=== PATIENT | male | born 1960 | race Caucasian/White ===

== ENCOUNTER 2022-10-30 17:09 | Inpatient (IN) | payer OTHER ==
[2022-10-30 18:44] VITALS: BMI 33.5
[2022-10-31] MEDS ORDERED: MAGNESIUM HYDROX 2400MG/30ML ORAL SUSPENSION 30 ML CUP PO PRN (03:41)
[2022-10-31] MEDS ORDERED: MAG HYDROX/AL HYDROX/SIMETH 30 ML UNIT-DOSE CUP PO PRN (03:41)
[2022-10-31] MEDS ORDERED: DICYCLOMINE HCL 10 MG CAPSULE PO PRN (03:41)
[2022-10-31] MEDS ORDERED: METHOCARBAMOL 500 MG TABLET PO PRN (03:41)
[2022-10-31] MEDS ORDERED: NALOXONE HCL (KLOXXADO) 8 MG SPRAY NS PRN (03:41)
[2022-10-31] MEDS ORDERED: NALOXONE HCL 0.4 MG/ML VIAL IM PRN (03:41)
[2022-10-31] MEDS ORDERED: IBUPROFEN 400 MG TABLET (FP) PO PRN (03:41)
[2022-10-31] MEDS ORDERED: ONDANSETRON *ODT* 4 MG TABLET SL PRN (03:41)
[2022-10-31] MEDS ORDERED: ACETAMINOPHEN 325 MG TABLET (FP) PO PRN (03:41)
[2022-10-31] MEDS ORDERED: IBUPROFEN 600 MG TABLET (FP) PO PRN (03:41)
[2022-10-31] MEDS ORDERED: BENZOCAINE/MENTHOL (CHLORASEPTIC ) LOZENGE MM PRN (03:41)
[2022-10-31] MEDS ORDERED: POLYETHYLENE GLYCOL (HEALTHYLAX) 3350 17 GM PACKET PO PRN (03:41)
[2022-10-31] MEDS ORDERED: BENZONATATE 200 MG CAPSULE PO PRN (03:41)
[2022-10-31] MEDS ORDERED: LOPERAMIDE HCL 2 MG CAPSULE PO PRN (03:41)
[2022-10-31] MEDS ORDERED: BISMUTH SUBSALICYLATE 524 MG/30 ML PO PRN (03:41)
[2022-10-31] MEDS ORDERED: guaiFENesin 600 MG TABLET.ER (FP) PO PRN (03:41)
[2022-10-31] MEDS ORDERED: cloNIDine HCL 0.1 MG TABLET PO ONE (03:47)
[2022-10-31] MEDS ORDERED: LORazepam 1 MG TABLET PO PRN (03:47)
[2022-10-31] MEDS: LORazepam 2 MG TABLET PO SCH ×4 (04:22→22:32)
[2022-10-31] MEDS ORDERED: METFORMIN HCL 500 MG PO SCH (08:30)
[2022-10-31] MEDS: PRENATAL VITAMINS W/ FOLIC ACID TABLET (FP) PO SCH (10:18)
[2022-10-31] MEDS: SERTRALINE HCL 50 MG TABLET (FP) PO SCH (12:18)
[2022-10-31] MEDS: PANTOPRAZOLE 40 MG TABLET PO SCH (13:47)
[2022-10-31] MEDS ORDERED: MECLIZINE HCL 25 MG TABLET (FP) PO PRN (13:54)
[2022-10-31] MEDS: TAMSULOSIN HCL 0.4 MG CAP PO SCH (14:49)
[2022-10-31] MEDS: PATIENT'S OWN MEDICATION (NON-FORMULARY) (Cetirizine Hcl [Cetirizine Hcl] 10 MG Tablet) PO SCH (15:59)
[2022-10-31] MEDS: LOSARTAN POTASSIUM 25 MG TABLET PO SCH (16:00)
[2022-10-31] MEDS: METFORMIN HCL 500 MG PO SCH (17:03)
[2022-10-31] MEDS: INSULIN SLIDING SCALE (NOVOLOG) 1 VIAL SQ SCH ×3 (17:58→22:33)
[2022-10-31] MEDS ORDERED: INSULIN (NOVOLOG) ASPART 100 UNITS/ML 10ML VIAL ONE (21:53)
[2022-10-31] MEDS ORDERED: INSULIN (NOVOLOG) ASPART 100 UNITS/ML 10ML VIAL SQ SCH (22:00)
[2022-10-31] MEDS ORDERED: MELATONIN 5 MG TABLETS PO SCH (22:00)
[2022-10-31] MEDS: lamoTRIgine 100 MG TABLET PO SCH (22:31)
[2022-10-31] MEDS: THIAMINE HCL 100 MG TABLET (FP) PO SCH (22:31)
[2022-10-31] MEDS: ATORVASTATIN CA 40 MG TABLET (FP) PO SCH (22:31)
[2022-10-31] MEDS: SUVOREXANT 10 MG TABLET PO PRN (22:32)
[2022-11-01] MEDS: LORazepam 1 MG TABLET PO SCH ×4 (05:39→22:07)
[2022-11-01] MEDS: INSULIN SLIDING SCALE (NOVOLOG) 1 VIAL SQ SCH ×8 (06:10→23:37)
[2022-11-01] MEDS: METFORMIN HCL 500 MG PO SCH ×2 (06:10→17:24)
[2022-11-01] MEDS ORDERED: INSULIN (NOVOLOG) ASPART 100 UNITS/ML 10ML VIAL ONE (06:11)
[2022-11-01] MEDS: TAMSULOSIN HCL 0.4 MG CAP PO SCH (09:23)
[2022-11-01] MEDS: PANTOPRAZOLE 40 MG TABLET PO SCH (10:45)
[2022-11-01] MEDS: SERTRALINE HCL 50 MG TABLET (FP) PO SCH (10:45)
[2022-11-01] MEDS: PRENATAL VITAMINS W/ FOLIC ACID TABLET (FP) PO SCH (10:45)
[2022-11-01] MEDS: PATIENT'S OWN MEDICATION (NON-FORMULARY) (Cetirizine Hcl [Cetirizine Hcl] 10 MG Tablet) PO SCH (10:45)
[2022-11-01] MEDS: LOSARTAN POTASSIUM 25 MG TABLET PO SCH (10:45)
[2022-11-01 10:49] LABS: POTASSIUM 3.9 mmol/L (3.5-5.1)
[2022-11-01 10:56] LABS: CALCIUM 9.4 mg/dL (8.5-10.1)
[2022-11-01 10:57] LABS: ALBUMIN 3.8 g/dl (3.4-5.0); BLOOD UREA NITROGEN 14.4 mg/dL (7-18); CREATININE 0.9 mg/dL (0.55-1.3)
[2022-11-01 10:58] LABS: BILIRUBIN,TOTAL 0.3 mg/dL (0.2-1); TOT PROT 7.2 g/dl (6.4-8.2)
[2022-11-01 11:01] LABS: HEMATOCRIT 41.5 % (35.4-49); HEMOGLOBIN 14.2 GM/dL (11.7-16.9); MCH 31.4 pg (25.7-33.7); MCHC 34.1 g/dl (32.0-35.9); MEAN CELL VOLUME 91.9 fl (80-96); MEAN PLT VOLUME 8.9 fl (7.5-11.1); PLATELET COUNT 267 10^3/uL (134-434); RBC 4.51 M/mm3 (4.00-5.60); WHITE BLOOD COUNT 8.2 K/mm3 (4.0-10.0)
[2022-11-01] MEDS: THIAMINE HCL 100 MG TABLET (FP) PO SCH (22:07)
[2022-11-01] MEDS: ATORVASTATIN CA 40 MG TABLET (FP) PO SCH (22:07)
[2022-11-01] MEDS: lamoTRIgine 100 MG TABLET PO SCH (22:07)
[2022-11-02] MEDS ORDERED: LORazepam 0.5 MG TABLET PO PRN
[2022-11-02] MEDS: LORazepam 0.5 MG TABLET PO SCH ×4 (05:31→22:41)
[2022-11-02] MEDS: METFORMIN HCL 500 MG PO SCH ×2 (06:25→17:22)
[2022-11-02] MEDS: INSULIN SLIDING SCALE (NOVOLOG) 1 VIAL SQ SCH ×5 (06:27→22:39)
[2022-11-02] MEDS: TAMSULOSIN HCL 0.4 MG CAP PO SCH (08:48)
[2022-11-02] MEDS: PANTOPRAZOLE 40 MG TABLET PO SCH (10:33)
[2022-11-02] MEDS: SERTRALINE HCL 50 MG TABLET (FP) PO SCH (10:33)
[2022-11-02] MEDS: PRENATAL VITAMINS W/ FOLIC ACID TABLET (FP) PO SCH (10:33)
[2022-11-02] MEDS: LOSARTAN POTASSIUM 25 MG TABLET PO SCH (10:34)
[2022-11-02] MEDS: PATIENT'S OWN MEDICATION (NON-FORMULARY) (Cetirizine Hcl [Cetirizine Hcl] 10 MG Tablet) PO SCH (10:35)
[2022-11-02] MEDS ORDERED: ATORVASTATIN CA 20 MG TABLET (FP) ONE ×2 (21:51→21:53)
[2022-11-02] MEDS: SUVOREXANT 10 MG TABLET PO PRN (22:40)
[2022-11-02] MEDS: THIAMINE HCL 100 MG TABLET (FP) PO SCH (22:40)
[2022-11-02] MEDS: ATORVASTATIN CA 40 MG TABLET (FP) PO SCH (22:41)
[2022-11-02] MEDS: lamoTRIgine 100 MG TABLET PO SCH (22:41)
[2022-11-03] MEDS ORDERED: LORazepam 0.5 MG TABLET PO ONE (05:00)
[2022-11-03] MEDS: METFORMIN HCL 500 MG PO SCH (06:06)
[2022-11-03 06:14] VITALS: RESP 18
[2022-11-03] MEDS: INSULIN SLIDING SCALE (NOVOLOG) 1 VIAL SQ SCH (07:40)
[2022-11-03] MEDS: TAMSULOSIN HCL 0.4 MG CAP PO SCH (07:40)
[2022-11-03 10:00] VITALS: BP 133/74; PULSE 100; TEMP 98.4
[2022-11-03] MEDS ORDERED: LOSARTAN POTASSIUM 25 MG TABLET PO SCH (10:00)
== END 2022-11-03 10:25 | disposition home or self-care (01) | DRG 775 ==
LOC: YASAS 17:09 → Y6N 10-31 03:44
PROVIDERS: ADMIT Allergy & Immunology; ATTEND Surgery
PROC: HZ2ZZZZ Detoxification Services for Substance Abuse Treatment (ICD-10-PCS; principal; 2022-10-31)
DX: F10.230 Alcohol dependence with withdrawal, uncomplicated (principal); F31.81 Bipolar II disorder; F10.282 Alcohol dependence with alcohol-induced sleep disorder; F10.280 Alcohol dependence with alcohol-induced anxiety disorder; F39 Unspecified mood [affective] disorder; I10 Essential (primary) hypertension; E78.5 Hyperlipidemia, unspecified; E11.9 Type 2 diabetes mellitus without complications; Z79.84 Long term (current) use of oral hypoglycemic drugs; J30.89 Other allergic rhinitis; K21.9 Gastro-esophageal reflux disease without esophagitis; N40.0 Benign prostatic hyperplasia without lower urinary tract symptoms; Z86.19 Personal history of other infectious and parasitic diseases; Z88.8 Allergy status to other drugs, medicaments and biological substances; Z56.0 Unemployment, unspecified; Z59.01 Sheltered homelessness
CPT/HCPCS: 36415; 71045-TC-FY; 71275-TC; 80053; 82962; 83690; 83735; 84100; 84484; 85025; 85027; 86593; 86780; 87635; 93005; 93010; 93306-TC; G0378; Q9967